=== PATIENT | female | born 1960 | race Caucasian/White ===

== ENCOUNTER 2017-07-04 19:52 | Inpatient (IN) | payer OTHER ==
[~2017-07-04] VITALS: Ht 11 cm; Wt 46.1 kg
--- NOTE | ~2017-07-04 | EKG ---
[address] [place] [address] ELECTROCARDIOGRAM REPORT Name: MANGO GARCIA Room #: 212- ADM IN M.R.#: [id number] Admission: 07/04/17 Attend Phys: Kiko Olsen MD Discharge: Date of : 64 Report #: [id number] THIS REPORT FOR: //name// [facility] Test Date: 2017-07-05 Test Time: 06:02:42 Pat Name: MANGO GARCIA Department: Room: 212 Gender: F Tourist Guide: CIRA : 1960 Requested By: Cheryl Guthrie Order Number: [id number] MD: Billy Black Measurements Intervals Norris Rate: 53 P: 50 ME: 175 QRS: 72 QRSD: 129 T: -26 QT: 521 QTc: 490 Interpretive Statements Sinus rhythm IVCD, consider atypical RBBB Baseline wander in lead(s) V6 Compared to ECG 11/11/2010 14:53:01 Left-axis deviation no longer present Inferior T wave abnormality less prominent Electronically Signed On 07-05-2017 7:57:56 [employer] [employer] by Billy Black [email or web address] <ELECTRONICALLY SIGNED> By: Billy Black MD, [facility] 07/05/17 [id number] Billy Black MD, [facility] /EPI
[~2017-07-04 19:52] MED LIST: ACETAMINOPHEN325 M1 PO; ASPIRIN325 PO; BAYER PLUS 500500 MG; CELEXA 10 MG TA10 M1 PO; CLOPIDOGREL; FISH OIL 1,0001 EAC5; FISHOIL OR; LISINOPRIL5 MG; LISINOPRIL5 MG PO; LOPRESSOR25; NITROGLYCERIN0.3 MG; NITROGLYCERIN0.4 MG SL; PLAVIX 75 MG TA75 MG PO; SIMVASTATIN40 MG PO; TOPROL XL25 MG PO; ZOCOR
[2017-07-04 22:30] VITALS: BP 120/71
[2017-07-04] MEDS ORDERED: DUONEB 2.5-0.5 M3 ML INH (23:21)
[2017-07-04] MEDS ORDERED: PROAIR HFA8.5 GM INH (23:23)
[2017-07-04] MEDS ORDERED: KLONOPIN0.5 MG PO (23:34)
[2017-07-04] MEDS ORDERED: QVAR8.7 G1 INH (23:34)
[2017-07-04] MEDS ORDERED: PROZAC20 MG PO (23:35)
[2017-07-04] MEDS ORDERED: PROMETHAZINE-D118 ML PO (23:39)
[2017-07-05] VITALS (7 sets, daily range): BP systolic 90–138; BP diastolic 54–86
[2017-07-05 07:17] LABS: CHOLESTEROL 134 mg/dL (<200); HDL CHOLESTEROL 40 mg/dL (>40); LDL CHOLESTEROL 74 mg/dL (<100); TC:HDL 3.4 Ratio (Not establshd); TRIGLYCERIDE 100 mg/dL (<150); VLDL 20 mg/dL (<40)
[2017-07-05 08:09] LABS: URINE BILIRUBIN 1+ (Negative); URINE BLOOD 3+ (Negative); URINE CLARITY CLOUDY; URINE COLOR YELLOW; URINE GLUCOSE-RANDOM* NEGATIVE (Negative); URINE KETONES NEGATIVE (Negative); URINE PROTEIN (DIPSTICK) 3+ (Negative); URINE SPECIFIC GRAVITY 1.025 (1.005-1.035)
[2017-07-05 08:14] LABS: ICTOTEST (BILI CONFIRMATORY) Negative (Negative); URINE LEUKOCYTES-REFLEX 2+ (Negative); URINE NITRITE-REFLEX POSITIVE (Negative)
[2017-07-05 08:25] LABS: SQUAMOUS 4-10 Moderate /LPF (0-3)
[2017-07-05 08:26] LABS: BACTERIA-REFLEX >30 Many /HPF (None Seen); MUCUS >6 Heavy strn/LPF (None Seen); URINE RBC 3-10 Few /HPF (0-2); URINE WBC-REFLEX >25 Many /HPF (0-5)
[2017-07-05 08:27] LABS: CRYSTALS None Seen /LPF (None Seen); FINE GRANULAR CASTS 4-10 Moderate /LPF (None Seen); WBC CLUMPS Packed (None Seen)
[2017-07-06 00:15] VITALS: BP 118/64; BP 145/57
[2017-07-06 03:10] LABS: CALCIUM 8.6 mg/dL (8.5-10.1); CREATININE 0.7 mg/dL (0.6-1.0); POTASSIUM 4.3 mmol/L (3.5-5.1)
[2017-07-06 03:12] LABS: HEMATOCRIT 34.8 % (37.0-47.0); HEMOGLOBIN 11.7 gm/dL (12.0-15.0); MCH 30.8 pg (26.0-34.0); MCHC 33.7 g/dL (28.0-37.0); MCV 91.4 fL (80.0-100.0); RBC 3.8 mil/uL (4.20-5.00); RDW 13.9 % (10.5-14.5); WBC 6.1 thou/uL (4.0-11.0)
[2017-07-06 03:13] LABS: PROTIME 10.6 Seconds (9.3-11.4)
[2017-07-06 04:30] VITALS: BP 133/87
[2017-07-06 07:50] VITALS: BP 127/93; BP 136/85; BP 144/86
[2017-07-06 08:43] VITALS: BP 136/85
[2017-07-06 11:10] VITALS: BP 127/80
[2017-07-06] MEDS ORDERED: KEFLEX500 M1 PO (11:50)
[2017-07-06 12:36] VITALS: BP 127/80
== END 2017-07-06 13:40 | disposition home or self-care (01) | DRG 312 ==
LOC: 2N 19:52
PROVIDERS: Nurse Practitioner Acute Care
DX: R55 Syncope and collapse (principal); N39.0 Urinary tract infection, site not specified; I25.10 Atherosclerotic heart disease of native coronary artery without angina pectoris; I10 Essential (primary) hypertension; F32.9 Major depressive disorder, single episode, unspecified; K52.9 Noninfective gastroenteritis and colitis, unspecified; E78.5 Hyperlipidemia, unspecified; F17.210 Nicotine dependence, cigarettes, uncomplicated; I65.01 Occlusion and stenosis of right vertebral artery; Z53.29 Procedure and treatment not carried out because of patient's decision for other reasons; J44.9 Chronic obstructive pulmonary disease, unspecified; M19.90 Unspecified osteoarthritis, unspecified site; I25.2 Old myocardial infarction; Z95.5 Presence of coronary angioplasty implant and graft; Z85.43 Personal history of malignant neoplasm of ovary; Z90.49 Acquired absence of other specified parts of digestive tract; Z90.710 Acquired absence of both cervix and uterus; Z98.891 History of uterine scar from previous surgery; Z82.49 Family history of ischemic heart disease and other diseases of the circulatory system; Z82.5 Family history of asthma and other chronic lower respiratory diseases; Z71.6 Tobacco abuse counseling
CPT/HCPCS: 10081